=== PATIENT | male | born 1970 | race Caucasian/White ===

== ENCOUNTER 2017-01-24 15:18 | Emergency (ER) | payer BC ==
[2017-01-24 16:42] VITALS: BP 151/95
[2017-01-24] MEDS ORDERED: Lidocaine 1% 20 ML MDV INJECT ONE (16:51)
[2017-01-24] MEDS ORDERED: Bacitracin Oint 1 GM U/D Packet TOP ONE (16:52)
--- NOTE | 2017-01-24 18:30 | EDM.PDOC ---
ED HPI GENERAL MEDICAL PROBLEM - General Chief Complaint: Laceration Stated Complaint: CUT FINGER Time Seen by Provider: 01/24/17 16:42 Source of Information: Reports: Patient, Family History Limitations: Reports: No Limitations - History of Present Illness INITIAL COMMENTS - FREE TEXT/NARRATIVE: Reymundo presents today with complaints of injury to left index finger. He was cutting wood when his finger became stuck between the blade and safety guard of the wood splitter. He complains of laceration and pain to finger. - Related Data Allergies Allergy/AdvReac Type Severity Reaction Status Date / Time No Known Allergies Allergy Verified 01/24/17 16:42 Home Meds: Home Meds NK [No Known Home Meds] 12/02/14 [History] Past Medical History - Past Health History Medical/Surgical History: Denies Medical/Surgical History Other Musculoskeletal History: Relbow cortisone shot. Social & Family History - Tobacco Use Smoking Status *Q: Never Smoker Years of Tobacco use: 25 Used Tobacco, but Quit: No Second Hand Smoke Exposure: No - Caffeine Use Caffeine Use: Reports: Coffee, Soda - Alcohol Use Days Per Week of Alcohol Use: 7 Number of Drinks Per Day: 5 Total Drinks Per Week: 35 - Recreational Drug Use Recreational Drug Use: No ED ROS GENERAL - Review of Systems Review Of Systems: See Below Constitutional: Reports: No Symptoms HEENT: Reports: No Symptoms Respiratory: Reports: No Symptoms Cardiovascular: Reports: No Symptoms Musculoskeletal: Reports: Other (Pain to left index finger. ) Skin: Reports: Other (Laceration to left index finger) Neurological: Denies: Numbness, Tingling, Weakness Psychiatric: Reports: No Symptoms Hematologic/Lymphatic: Reports: No Symptoms Immunologic: Reports: No Symptoms ED EXAM, SKIN/RASH Exam: See Below Text/Narrative:: Reymundo is an alert, oriented and pleasant 46 year old male who developed injury from wood splitter of left index finger with laceration. He presents with dressing on and bleeding controlled. Exam Limited By: No Limitations General Appearance: Alert, WD/WN, No Apparent Distress, Mild Distress Eye Exam: Bilateral Eye: EOMI, Normal Inspection Ears: Normal External Exam, Normal Canal, Hearing Grossly Normal, Normal TMs Nose: Normal Inspection, Normal Mucosa, No Blood Throat/Mouth: Normal Inspection, Normal Lips, Normal Teeth, Normal Gums, Normal Oropharynx, Normal Voice, No Airway Compromise Head: Atraumatic, Normocephalic Neck: Normal Inspection, Supple, Non-Tender, Full Range of Motion. No: Lymphadenopathy (R), Lymphadenopathy (L) Respiratory/Chest: No Respiratory Distress, Lungs Clear, Normal Breath Sounds, No Accessory Muscle Use, Chest Non-Tender Cardiovascular: Normal Peripheral Pulses, Regular Rate, Rhythm, No Edema, No Murmur Peripheral Pulses: 2+: Radial (L), Radial (R) Back Exam: Normal Inspection, Full Range of Motion. No: CVA Tenderness (R), CVA Tenderness (L) Extremities: Normal Range of Motion, No Pedal Edema, Normal Capillary Refill, Other (Tenderness, laceration to left index finger. Full sensation intact distal to wound. ) Neurological: Alert, Oriented, CN II-XII Intact, Normal Cognition, Normal Reflexes, No Motor/Sensory Deficits Psychiatric: Normal Affect, Normal Mood Skin: Other (Laceration 2.5 cm, irregular to left index finger. ) Location, Skin: Other (As above) Associated features: Tenderness Lymphatic: No Adenopathy ED SKIN PROCEDURES - Laceration/Wound Repair Left Finger Lac/Wound length In cm: 2.5 Appearance: Subcutaneous, Irregular Anesthetic Type: Local Local Anesthesia - Lidocaine (Xylocaine): 1% Plain Local Anesthetic Volume: 5cc Skin Prep: Chlorhexidine (Hibiciens), Saline Saline Irrigation (cc's): 60 Exploration/Debridement/Repair: Wound Explored, In a Bloodless Field, Explored to Base, No Foreign Material Found Closed with: Sutures Suture Size: 4-0 # of Sutures: 6 Suture Type: Prolene, Interrupted Course - Vital Signs Last Recorded V/S: Last Vital Signs Temp 36.7 C 01/24/17 16:39 Pulse 77 01/24/17 16:39 Resp 14 01/24/17 16:39 BP 151/95 H 01/24/17 16:39 Pulse Ox 98 01/24/17 16:39 - Orders/Labs/Meds Orders: Active Orders 24 hr Category Date Time Status Fingers Second Digit Lt F1 [CR] Stat Exams 01/24/17 16:51 Taken Meds: Medications Discontinued Medications Generic Name Dose Route Start Last Admin Trade Name Freq PRN Reason Stop Dose Admin Bacitracin 1 dose 01/24/17 16:52 01/24/17 17:37 Bacitracin Oint 1 Gm TOP 01/24/17 16:53 1 dose ONETIME ONE Administration Lidocaine HCl 20 ml 01/24/17 16:51 01/24/17 17:37 Xylocaine 1% INJECT 01/24/17 16:52 20 ml ONETIME ONE Administration - Radiology Interpretation Free Text/Narrative:: 1720: X-ray wet read, fracture of middle phalanx. Radiologist read pending. - Re-Assessments/Exams Free Text/Narrative Re-Assessment/Exam: 01/24/17 18:25 Patient tolerated laceration repair well. Finger dressed and finger splint applied. Departure - Departure Time of Disposition: 18:21 Disposition: Home, Self-Care 01 Condition: Good Clinical Impression: Laceration, Fracture of distal phalanx of index finger - Discharge Information Instructions: Laceration Care, Adult, [id number] Referrals: PCP,None [Primary Care Provider] - Forms: ED Department Discharge Additional Instructions: You have suffered a laceration and fracture of your left index finger. Keep dressing in place for 24 hours. Cover wound when showering You can take cephalexin 1000mg by mouth twice per day for 10 days to prevent infection. Keep the wound clean and dry. You may use bacitracin ointment twice per day to wound for 5 days. Follow up with your local Orthopedic provider in two weeks for recheck. Follow up with your primary provider in 7 to 10 days for removal of sutures. Monitor for signs and symptoms of infection. Take ibuprofen and acetaminophen as needed for pain. Return for worsening, issues or concerns. - My Orders Last 24 Hours: My Active Orders 01/24/17 16:51 Fingers Second Digit Lt F1 [CR] Stat - Assessment/Plan Last 24 Hours: My Active Orders 01/24/17 16:51 Fingers Second Digit Lt F1 [CR] Stat Assessment:: Laceration Fracture middle phalanx Plan: Keep dressing in place for 24 hours. Cover wound when showering He can take cephalexin 1000mg by mouth twice per day for 10 days to prevent infection. Keep the wound clean and dry. He may use bacitracin ointment twice per day to wound for 5 days. Follow up with his local Orthopedic provider in two weeks for recheck. Follow up with his primary provider in 7 to 10 days for removal of sutures. Monitor for signs and symptoms of infection. Take ibuprofen and acetaminophen as needed for pain. Return for worsening, issues or concerns.
--- NOTE | 2017-01-26 10:13 | CR ---
Fingers Second Digit Lt F1 INDICATION: laceration/injury FINDINGS: Acute, minimally comminuted fracture of the radial aspect of the middle phalanx of the left second digit.
== END 2017-01-24 18:52 | disposition home or self-care (01) ==
LOC: JP.ED 15:18
DX: S62.621A Displaced fracture of middle phalanx of left index finger, initial encounter for closed fracture (principal); S61.211A Laceration without foreign body of left index finger without damage to nail, initial encounter; W45.8XXA Other foreign body or object entering through skin, initial encounter; Y93.89 Activity, other specified
CPT/HCPCS: 12001; 73140-26-F1; 73140-F1; 99284-25